=== PATIENT | female | born 1995 | race Hispanic/Latino ===

== ENCOUNTER 2020-03-14 16:58 | Emergency (ER) | payer BC, SELFPAY ==
--- NOTE | ~2020-03-14 | US_ITS ---
CORRECTED REPORT Spelling of last name corrected. Changed from Behena to Norman. 03/19/2020 sef EXAMINATION: US OB <=14 wk fetus w TV DATE: 03/14/2020 17:48 INDICATION: 2 days of vaginal bleeding and clots during first trimester . TECHNIQUE: Real-time pelvic ultrasound utilizing both a transvaginal and transabdominal probe was performed. The interpreting radiologist was not present for the study. COMPARISON: None. FINDINGS: The anteverted uterus measures 8.0 x 5.6 x 4.5 cm. The endometrial complex measures 5 mm with no intrauterine gestational sac identified, yolk sac or pole identified. 405 mm anechoic nabothian cyst at the cervix. The right ovary measures 2.3 x 1.8 x 1.7 cm. The left ovary is not visualized There is a small amount of anechoic free fluid in the cul-de-sac. IMPRESSION: 1. No intrauterine gestational sac. Correlate with clinical history for confirmation of a previous intrauterine which is confirmed would be consistent with spontaneous . In the absence of a previously confirmed the differential would also include ectopic or early . Reviewed, dictated and finalized at location . 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 No intrauterine gestational sac. Correlate with clinical history for confirm ation of a previous intrauterine which is confirmed would be consiste nt with spontaneous . In the absence of a previously confirmed pregnanc y the differential would also include ectopic or early .
[2020-03-14 17:01] VITALS: BP 121/63; PULSE 73; RESP 18; TEMP 36.5; O2SAT 100
--- NOTE | 2020-03-14 17:20 | ED.PREGNANCY ---
HPI - General Chief complaint: Vaginal Bleeding Stated complaint: miscarriage, bleeding Time Seen by Provider: 03/14/20 17:06 History of Present Illness HPI Narrative: 24 yo female at approximately 9 weeks gestation presents to the ED c/o miscarriage. She reports that she had heavy bleeding and cramping a few days ago. She beleives that she was having a miscarriage. She was called at work today by Dr. Carter's office and told to come to the ED for an ultrasound and some lab tests. The bleeding is now very light and she is having no pain Related Data Home Medications Medication Instructions Recorded Confirmed No Home Medications 03/14/20 03/14/20 Allergies Allergy/AdvReac Type Severity Reaction Status Date / Time No Known Allergies Allergy Verified 03/14/20 17:04 Review of Systems Constitutional: Constitutional: Denies fever(s) Cardiovascular: Cardiovascular: Denies chest pain Respiratory: Respiratory: Denies dyspnea Gastrointestinal: Gastrointestinal: Denies abdominal pain, Denies nausea and Denies vomiting Genitourinary: Genitourinary: Reports abnormal vaginal bleeding and Denies dysuria Neurologic: Denies dizziness and Denies weakness [facility] Past Medical History Medical History (Updated 03/14/20 @ 18:32 by Star Sparrow MD) Healthy adult Social History Social History (Updated 03/14/20 @ 17:24 by Star Sparrow MD) Smoking status: Never smoker Gender identity (if verbalized by the patient): Female Exam Const: General: healthy appearing, no acute distress and alert Orientation/consciousness: patient oriented x3 HENMT: Head: normal to inspection Neck: Neck: normal visual inspection Resp: Effort & Inspection: normal respiratory effort Auscultation: clear to auscultation bilaterally, no rales, no rhonchi and no wheezes Cardio: Jugular venous distension: no JVD Rate: regular rate Rhythm: regular rhythm Heart sounds: no murmurs GI: Inspection: non-distended GI Palp: Yes Soft to palpation and No Tenderness to palpation present (GI) Other: soft, nontender Skin: General skin exam: normal color Neuro: General: patient oriented x3 and moves all extremities Speech: normal speech Extrem: General: normal to inspection Psych: Appearance: well kempt Affect: normal affect Course Vital Signs Vital signs: Vital Signs Temperature 36.5 C 03/14/20 17:01 Pulse Rate 73 03/14/20 17:01 Respiratory Rate 18 03/14/20 17:01 Blood Pressure 121/63 03/14/20 17:01 Pulse Oximetry 100 03/14/20 17:01 Temperature 36.5 C 03/14/20 17:01 Pulse Rate 73 03/14/20 17:01 Respiratory Rate 18 03/14/20 17:01 Blood Pressure 121/63 03/14/20 17:01 Pulse Oximetry 100 03/14/20 17:01 MDM - OB/Uterine Contractions MDM Narrative Medical decision making narrative: Ultrasound shows an empty uterus. [facility] [place]. Rh +. Case discussed with Dr. Arguello. She can follow-up with them in clinic for repeat labs. Medical Records Attestation: I reviewed the patient's medical records. Lab Data Attestation: I reviewed the patient's lab results. Result diagrams: 03/14/20 17:23 Labs: Lab Results 03/14/20 03/14/20 03/14/20 Range/Units 17:23 17:23 17:25 WBC 8.2 (4.5-10.0) K/mm3 RBC 4.49 (4.2-5.4) M/mm3 Hgb 13.3 (12.0-15.0) g/dL Hct 39.6 (37.0-47.0) % MCV 88.2 (80-100) fl MCH 29.6 (26-34) pg MCHC 33.6 (32-36) g/dl RDW 12.1 (11.5-14.5) % Plt Count 277 (150-375) k/mm3 MPV 9.3 (7.4-10.4) fl Immature Gran % (Auto) 0.1 (0-0.5) % Neut % (Auto) 50.1 (45.5-73.1) % Lymph % (Auto) 43.0 (18.3-44.2) % Twiggs % (Auto) 5.6 (2.6-8.5) % Eos % (Auto) 1.0 (0-4.4) % Baso % (Auto) 0.2 (0.2-1.2) % Lymph # (Auto) 3.54 H (0.9-3.2) K/mm3 Twiggs # (Auto) 0.5 (0.1-0.6) K/mm3 Eos # (Auto) 0.1 (0-0.3) K/mm3 Baso # (Auto) 0.0 (0.0-0.1) K/mm3 Abs Immat Gran (auto) 0.01
[2020-03-14 17:40] LABS: Basophils Percent Auto 0.2 % (0.2-1.2); Eosinophils Absolute Auto 0.1 K/mm3 (0-0.3); Hematocrit 39.6 % (37.0-47.0); Hemoglobin 13.3 g/dL (12.0-15.0); Immature Granulocyte Absolute 0.01 K/mm3 (0.00-0.031); Immature Granulocyte Percent A 0.1 % (0-0.5); Lymphocytes Absolute Auto 3.54 K/mm3 (0.9-3.2); Mean Corpuscular HGB Conc 33.6 g/dl (32-36); Mean Corpuscular Hemoglobin 29.6 pg (26-34); Mean Corpuscular Volume 88.2 fl (80-100); Mean Platelet Volume 9.3 fl (7.4-10.4); Monocytes Absolute Auto 0.5 K/mm3 (0.1-0.6); Monocytes Percent Auto 5.6 % (2.6-8.5); Neutrophils Absolute Auto 4.1 K/mm3 (1.3-6.7); Neutrophils Percent Auto 50.1 % (45.5-73.1); Platelet Count Result 277 k/mm3 (150-375); Red Blood Count 4.49 M/mm3 (4.2-5.4); Red Cell Distribution Width 12.1 % (11.5-14.5); White Blood Count 8.2 K/mm3 (4.5-10.0)
[2020-03-14 18:07] LABS: Beta HCG Quantitative 317.64 mIU/ML
[2020-03-14 19:14] VITALS: BP 101/56; PULSE 68; RESP 16; TEMP 36.7; O2SAT 99
== END 2020-03-14 19:15 | disposition home or self-care (01) ==
PROVIDERS: Emergency Medicine; Emergency Provider Emergency Medicine; PCP Obstetrics & Gynecology
DX: O03.9 Complete or unspecified spontaneous abortion without complication (principal)
CPT/HCPCS: 36415; 76801; 76817; 84702; 85025; 85461; 99284

== ENCOUNTER 2020-07-15 11:21 | Outpatient (CLI) | payer BC, SELFPAY ==
--- NOTE | ~2020-07-15 | US_ITS ---
EXAMINATION: US OB <= 14 weeks fetus DATE: 07/15/2020 11:53 INDICATION: Threatened . TECHNIQUE: Real-time transabdominal and transvaginal obstetric ultrasound. FINDINGS: No prior studies for comparison. The uterus measures 8.6 x 6.5 x 8.2 cm. There is an intrauterine gestational sac, with pole des ntified. The crown rump length measures 1.87 cm, which correlates with a estimated gestational age o f 8 weeks 3 days. heart tones are identified measuring 161 bpm. There is a subchorionic hemor rhage measuring 1.2 x 0.7 x 1 cm. Right ovary is normal measuring 3.5 x 1.9 x 1.9 cm. Left ovary not visualized. IMPRESSION: 1. SL IUP with an EGA of 8 weeks, 3 days (EDC by current ultrasound of 02/21/2021). 2: Small subchorionic hemorrhage. Reviewed, dictated and finalized at location A. IMPRESSION: 1. SL IUP with an EGA of 8 weeks, 3 days (EDC by current ultrasound of 02/22/20). 2: Small subchorionic hemorrhage.
== END 2020-07-15 11:22 | disposition home or self-care (01) ==
PROVIDERS: Visit Provider Obstetrics & Gynecology
DX: O20.0 Threatened abortion (principal); Z3A.08 8 weeks gestation of pregnancy; O36.8911 Maternal care for other specified fetal problems, first trimester, fetus 1
CPT/HCPCS: 76801

== ENCOUNTER 2020-08-12 09:45 | Outpatient (CLI) | payer BC, SELFPAY ==
[2020-08-12 10:15] LABS: Basophils Percent Auto 0.2 % (0.2-1.2); Eosinophils Percent Auto 0.5 % (0-4.4); Hematocrit 38.8 % (37.0-47.0); Hemoglobin 13.9 g/dL (12.0-15.0); Immature Granulocyte Absolute 0.02 K/mm3 (0.00-0.031); Immature Granulocyte Percent A 0.2 % (0-0.5); Lymphocytes Percent Auto 30.3 % (18.3-44.2); Mean Corpuscular HGB Conc 35.8 g/dl (32-36); Mean Corpuscular Volume 86.4 fl (80-100); Mean Platelet Volume 9.3 fl (7.4-10.4); Monocytes Absolute Auto 0.5 K/mm3 (0.1-0.6); Monocytes Percent Auto 6.1 % (2.6-8.5); Neutrophils Absolute Auto 5.2 K/mm3 (1.3-6.7); Neutrophils Percent Auto 62.7 % (45.5-73.1); Platelet Count Result 219 k/mm3 (150-375); Red Blood Count 4.49 M/mm3 (4.2-5.4); Red Cell Distribution Width 12.7 % (11.5-14.5); White Blood Count 8.3 K/mm3 (4.5-10.0)
[2020-08-12 10:25] LABS: Add Urine Microscopic? YES; Amorphous Sediment Urine Few; Appearance Urine Turbid (Clear); Bacteria Urine Trace /hpf; Bilirubin Urine Negative (Negative); Blood Urine Negative (Negative); Color Urine Yellow (Yellow); Glucose Urine UA Negative (Negative); Ketones Urine Negative (Negative); Leukocyte Esterase Ur Trace LEU/UL (NEGATIVE); Nitrate Urine Negative (Negative); Protein Urine Negative (Negative); RBC Urine 0-2 /hpf (0-2); Specific Grav Ur 1.016 (1.001-1.035); Squamous Epithelial Cell Urine Many /hpf (Few); Urobilinogen Urine Negative mg/dL (<2.0); WBC Clumps Urine Present /HPF
[2020-08-12 11:02] LABS: Vitamin D 25 Hydroxy 29.9 ng/mL
[2020-08-12 11:09] LABS: Thyroid Stimulating Hormone 0.913 uIU/mL (0.465-4.680)
[2020-08-12 11:16] LABS: Hepatitis B Surface Antigen Negative (Negative)
[2020-08-12 11:19] LABS: HIV 1/2 Ab P24 Ag Result Negative (Negative)
[2020-08-12 11:32] LABS: Hepatitis C Virus Antibody Negative (Negative)
[2020-08-13 13:26] LABS: Rapid Plasma Reagin Non-Reactive (NonReactive)
[2020-08-15 20:46] LABS: Varicella IgG Antibody <135.00 Index (>=165.00)
[2020-08-18 21:33] LABS: Hematocrit 39.7 % (35.0-45.0); Hemoglobin 13.5 g/dL (11.7-15.5); MCH 31.3 pg (27.0-33.0); MCV 91.9 FL (80.0-100.0); RDW 13.9 % (11.0-15.0); Red Blood Cell Count 4.32 Mill/uL (3.80-5.10)
== END 2020-08-12 09:46 | disposition home or self-care (01) ==
PROVIDERS: Visit Provider Obstetrics & Gynecology
DX: Z34.92 Encounter for supervision of normal pregnancy, unspecified, second trimester (principal); Z3A.26 26 weeks gestation of pregnancy
CPT/HCPCS: 36415; 81001; 82306; 83021; 84443; 85025; 86592; 86703; 86762; 86787; 86803; 86850; 86900; 86901; 87086; 87088; 87340; G0432

== ENCOUNTER 2020-09-24 16:03 | Outpatient (CLI) | payer BC, SELFPAY ==
--- NOTE | ~2020-09-24 | US_ITS ---
EXAMINATION: US OB /maternal detail DATE: 09/24/2020 16:59 INDICATION: Encounter for supervision of normal . TECHNIQUE: Real-time ultrasound of the pelvis was performed. COMPARISON: Ultrasound 07/15/2020 FINDINGS: There is a single living fetus in breech presentation. The placenta is posterior. heart rate i s 138 beats per minute (bpm). The amniotic fluid volume is subjectively normal. The following biometric data were obtained: Biparietal diameter (BPD): 3.7 cm; head circumference (HC): 13.5 cm; abdominal circumference (AC): 11 .6 cm; femur length (FL): 2.5 cm. These measurements are concordant. Estimated weight is 194 g +/- 29 g, which correlates with <3rd percentile when 02/19/21 is used as estimated date of delivery. As single measurements, these parameters are each equal to the following estimated gestational ages: BPD: 17 weeks 2 days. HC: 17 weeks 0 days. AC: 17 weeks 2 days. FL: 17 weeks 4 days. estimated gestational age based solely on measurements from this exam is 17 weeks 2 days +/- 1 weeks 1 days. The cerebral ventricles, cerebellum, cisterna magna, nuchal fold, and visualized portions of the spin e are normal. The heart is not well visualized. The diaphragm, stomach, kidneys, and bladder are norm al. There are two umbilical arteries to yield a 3-vessel cord. The cord insertion is normal. IMPRESSION: 1. Single living fetus in breech presentation. 2. Small for gestational age. Estimated weight is 194 g +/- 29 g, which correlates with <3rd p ercentile when 02/19/21 is used as estimated date of delivery. Note that estimated date of delivery b ased on the ultrasound from 07/15/2020 would be 02/21/2021. 3. heart not well visualized. Otherwise normal anatomic survey. Reviewed, dictated and finalized at location A. IMPRESSION: 1. Single living fetus in breech presentation. 2. Small for gestational age. Estimated weight is 194 g +/- 29 g, which correlates with <3rd percentile when 02/19/21 is used as estimated date of deli very. Note that estimated date of delivery based on the ultrasound from 07/16/19 21 would be 02/21/2021. 3. heart not well visualized. Otherwise normal anatomic survey.
== END 2020-09-24 16:04 | disposition home or self-care (01) ==
LOC: ANHIMG 16:06
PROVIDERS: Visit Provider Obstetrics & Gynecology
DX: Z34.92 Encounter for supervision of normal pregnancy, unspecified, second trimester (principal); Z3A.17 17 weeks gestation of pregnancy
CPT/HCPCS: 76805

== ENCOUNTER 2020-12-11 09:16 | Outpatient (CLI) | payer BC, SELFPAY ==
[2020-12-11 11:08] LABS: Basophils Percent Auto 0.1 % (0.2-1.2); Eosinophils Absolute Auto 0.1 K/mm3 (0-0.3); Eosinophils Percent Auto 1.3 % (0-4.4); Hematocrit 35.1 % (37.0-47.0); Hemoglobin 11.5 g/dL (12.0-15.0); Immature Granulocyte Absolute 0.03 K/mm3 (0.00-0.031); Immature Granulocyte Percent A 0.4 % (0-0.5); Lymphocytes Absolute Auto 1.97 K/mm3 (0.9-3.2); Mean Corpuscular HGB Conc 32.8 g/dl (32-36); Mean Corpuscular Hemoglobin 29.6 pg (26-34); Mean Corpuscular Volume 90.5 fl (80-100); Mean Platelet Volume 9.5 fl (7.4-10.4); Monocytes Absolute Auto 0.5 K/mm3 (0.1-0.6); Monocytes Percent Auto 5.7 % (2.6-8.5); Neutrophils Percent Auto 69.5 % (45.5-73.1); Platelet Count Result 250 k/mm3 (150-375); Red Blood Count 3.88 M/mm3 (4.2-5.4); Red Cell Distribution Width 12.4 % (11.5-14.5); White Blood Count 8.6 K/mm3 (4.5-10.0)
[2020-12-11 11:18] LABS: Glucose 1 Hour PP 50gm Dose 134 mg/dL
[2020-12-11 11:59] LABS: HIV 1/2 Ab P24 Ag Result Negative (Negative)
[2020-12-12 09:27] LABS: Rapid Plasma Reagin Non-Reactive (NonReactive)
== END 2020-12-11 09:17 | disposition home or self-care (01) ==
LOC: ANHLAB 09:18
PROVIDERS: Visit Provider Obstetrics & Gynecology
DX: Z34.90 Encounter for supervision of normal pregnancy, unspecified, unspecified trimester (principal)
CPT/HCPCS: 36415; 82947; 85025; 86592; 86703; G0432

== ENCOUNTER 2020-12-17 06:42 | Outpatient (CLI) | payer BC, SELFPAY ==
[2020-12-17 07:44] LABS: Glucose Fasting Gestational 88 mg/dL (>/=95)
[2020-12-17 09:36] LABS: Glucose 1 Hour Gest 129 mg/dL (>/=180)
[2020-12-17 10:32] LABS: Glucose 2 Hour Gest 137 mg/dL (>/= 155)
[2020-12-17 11:13] LABS: Glucose 3 Hour Gest 106 mg/dL (>/=140)
== END 2020-12-17 06:43 | disposition home or self-care (01) ==
LOC: ANHLAB 06:46
PROVIDERS: Visit Provider Obstetrics & Gynecology
DX: R73.09 Other abnormal glucose (principal)
CPT/HCPCS: 36415; 82951; 82952

== ENCOUNTER 2021-01-07 16:14 | Outpatient (RCR) | payer BC, SELFPAY ==
[2021-01-06] MEDS: BETAMETHASONE SOD PHOS/ACETATE 30 MG/5 ML VIAL 12 MG IM (16:26)
[2021-01-07] MEDS: BETAMETHASONE SOD PHOS/ACETATE 30 MG/5 ML VIAL 12 MG IM (16:21)
== END 2021-02-24 14:53 | disposition home or self-care (01) ==
LOC: ANHOBOP 16:14
PROVIDERS: Visit Provider Obstetrics & Gynecology
DX: O36.8990 Maternal care for other specified fetal problems, unspecified trimester, not applicable or unspecified (principal); Z3A.00 Weeks of gestation of pregnancy not specified
CPT/HCPCS: 96372; J0702

== ENCOUNTER 2021-01-30 17:12 | Inpatient (IN) | payer BC, SELFPAY ==
[2021-01-30] VITALS (7 sets, daily range): BP systolic 76–108; BP diastolic 39–81; PULSE 74–124; TEMP 36.6
--- NOTE | 2021-01-30 17:40 | LDADM ---
This patient, Carolin Norman, was admitted to Labor/Delivery/Recovery 104 on 01/30/21 at 17:12. Plans for labor, pain management and were discussed with patient. Patient/family oriented to hospital policies and general routines including ID bracelet, bed and alarms, visiting hours, pain management, procedures, bathroom and other care routines, personal items, smoking policy, room service/diet and guest tray routines, infant security routines, and visiting hours. Patient/Family are encouraged to report perceived risks to care and to ask questions if they do not understand what they are told or what they should do. See OBIX for further documentation.
[2021-01-30 17:48] LABS: Basophils Percent Auto 0.1 % (0.2-1.2); Eosinophils Percent Auto 0.3 % (0-4.4); Hematocrit 34.9 % (37.0-47.0); Hemoglobin 11.6 g/dL (12.0-15.0); Immature Granulocyte Absolute 0.03 K/mm3 (0.00-0.031); Immature Granulocyte Percent A 0.3 % (0-0.5); Lymphocytes Absolute Auto 2.27 K/mm3 (0.9-3.2); Lymphocytes Percent Auto 25.2 % (18.3-44.2); Mean Corpuscular HGB Conc 33.2 g/dl (32-36); Mean Corpuscular Hemoglobin 28.4 pg (26-34); Mean Corpuscular Volume 85.3 fl (80-100); Mean Platelet Volume 9.1 fl (7.4-10.4); Monocytes Absolute Auto 0.6 K/mm3 (0.1-0.6); Monocytes Percent Auto 6.4 % (2.6-8.5); Neutrophils Absolute Auto 6.1 K/mm3 (1.3-6.7); Neutrophils Percent Auto 67.7 % (45.5-73.1); Platelet Count Result 267 k/mm3 (150-375); Red Blood Count 4.09 M/mm3 (4.2-5.4); Red Cell Distribution Width 13.6 % (11.5-14.5)
[2021-01-30] MEDS: DINOPROSTONE 10 MG VAG INSERT VAGINAL (17:59)
[2021-01-31] VITALS (20 sets, daily range): BP systolic 74–122; BP diastolic 31–79; PULSE 61–93; RESP 16–20; TEMP 36.8–37.1; O2SAT 100
[2021-01-31] MEDS: LACTATED RINGERS 1,000 ML 125 ML IV CONT (06:54)
--- NOTE | 2021-01-31 07:52 | PM.OBPRVD ---
OB - Delivery Note Procedure Delivery date: 01/31/21 Procedure: events: Labor Induction Intrapartal events: None Induction method: per misoprostol protocol Delivery monitor: external FHT and external uterine Route of delivery: Specimen: Yes Quantitative Blood Loss (ml): 178 Anesthesia type: Local Disposition: floor Complications: none [place] Baby Date of : 01/31/21 Time of : 08:02 Weeks of gestation at delivery: 37 Infant gender: Female Weight (pounds): 4 Weight (ounces): 14 presentation: vertex position: Right Occiput Anterior Placenta delivery description: Spontaneous cord vessel description: 3 Vessels, Nuchal Cord, Tight and Clamped/Cut score one minute: 9 score five minutes: 9
[2021-01-31] MEDS: OXYTOCIN 30 UNITS/NS 500 ML 30 UNITS/500 ML BAG 6 UNITS IV CONT (08:08)
[2021-01-31] MEDS: OXYTOCIN 30 UNITS/NS 500 ML 30 UNITS/500 ML BAG 125 UNITS IV CONT (08:38)
--- NOTE | 2021-01-31 09:25 | PC.NURSE ---
Consult with pt., in L&D mother reports she has attempted infant to breast and unable to obtain a deep latch. is able to freely thrust tongue past gum ridge and flange both lips. Discussed establishing in the late may be more difficult due to their immaturity, infant may be less alert, have less stamina, and have greater difficulty with latch, suck, and swallow. Infant?s feeding may impact mother?s milk supply, pumping may need to be initiated /continued until milk supply is well established and infant is able to effective without supplementation. Reviewed infant feeding cues, frequencies, duration of feedings, feeding elimination flow sheet, and signs of adequate intake. Demonstrated stimulation techniques to wake infant for feeding. Assisted with to breast. Reviewed positioning/alignment in cross cradle, holding breast in ?U? hold and guided asymmetrical latch on. Reviewed rational for each. Infant is making eager attempts. Mother has large nipples with a crease in the center of nipple that appear to be inverted, entire nipple draws out with stimulation. is unable to draw entire nipple in and will draw in half of nipple above crease. Several attempts made without a successful latch. Mother would like to be supplemented for this feeding. Discussed options of attempting next latch using a nipple shield.
[2021-01-31 12:01] LABS: Rapid Plasma Reagin Non-Reactive (NonReactive)
--- NOTE | 2021-01-31 12:30 | PC.NURSE ---
Mother called out for assist with feeding. Nipple care reviewed of lanolin after feedings, warm compresses as needed. Reviewed infant feeding cues, frequencies, duration of feedings, feeding elimination flow sheet, and signs of adequate intake. Demonstrated stimulation techniques to wake for feeding. Assisted with to breast. Reviewed positioning/alignment in cross cradle, holding breast in ?U? hold and guided asymmetrical latch on. Reviewed rational for each. was unable to latch correctly and draw entire nipple in deeply. Discussed nipple shield use and how shield may assist with latch. Mother is willing to attempt using shield. Initiated nipple shield due to inverted nipple, unable to latch and unable to maintain latch. Reviewed nipple shield precautions and possible complications. Instructions given on application and cleaning of shield. Patient able to return demonstration on proper application of shield. Discussed the need to initiate pumping if infant continues to nurse with the shield. Patient verbalizes understanding. With shield in place, able to latch correctly within a few attempts. Infant nursed eagerly with steady draws and occasional swallowing noted for bursts followed with long pausing. Reviewed signs of a correct latch, effective nursing and suck swallow ratio. was able to maintain latch without discomfort to mother. Suggested mother stimulate while feeding to increase stimulate, increase intake and to assist with maintaining deep latch. Demonstrated how to adjust latch more deeply while feeding if needed. Discussed the need to initiate pumping due to ineffective nursing. Instructions given on breast pump care and usage, pumping schedule, nipple care, and collection and storage of breast milk. Encouraged [id number], breast massage and manual expression to stimulate supply. Pumping log provided and reviewed. Assessed patient for correct flange size, placement and draw. Patient verbalizes and demonstrates understanding of instructions. Discussed the difference of effective vs ineffective feeding. Reviewed is latching with good burst of suckling, she is not feeding consistently with adequate milk transfer at this time and continues to need to be supplement after . Feeding options discussed, Feeding Plan is for mother to put infant to breast each feeding for up to 15 minutes, then pace feed supplement 10-15mls and pump for 10-15 minutes. Parents are comfortable with supplementation and pumping. If infant begins to nurse effectively with long draws and frequent swallowing noted, infant may decrease supplementation and discontinue pumping. Suggested mother have LC insurance coordinator observe feeding before discontinuing supplementation. Discussed increasing supplementation as requires to satisfactions. Reviewed paced feeding and suggested to stop when is satisfied, as long as infant is having required output. With increased supplementation may not want to feed for 4 hours. Mother will continue to pump on feeding schedule and will increase session to 20 minutes if pumping every 4 hours. Instructed mother to call out for RN assistance if she is unable to latch infant for feeding or she has discomfort with nursing. Instructed feeding should be initiated three hours from start of last feeding or if feeding cues are noted before. Mother voiced understanding
[2021-02-01 03:10] VITALS: BP 97/49; PULSE 80; RESP 16; TEMP 36.4
[2021-02-01 04:45] LABS: Hematocrit 32.7 % (37.0-47.0); Hemoglobin 10.7 g/dL (12.0-15.0)
[2021-02-01 08:00] VITALS: BP 102/62; PULSE 85; RESP 18; TEMP 37.1; O2SAT 99
[2021-02-01] MEDS: MULTIVIT/MIN/PREN/FOL AC/IRON TABLET 1 TAB PO (09:25)
--- NOTE | 2021-02-01 11:58 | P.PNOB_ITS ---
OB - PN: Subj Subjective Date/time seen: 02/01/21 11:58 Patient comments: pain well controlled, tolerating diet and other (Decreasing lochia.) baby status: doing well and nursing well OB - PN: Obj Data Labs CBC & Chem 7: 02/01/21 03:12 Labs: Laboratory Results - last 24 hr 01/30/21 02/01/21 17:37 03:12 Hgb 10.7 L Hct 32.7 L RPR Non-reactive OB - PN A/P Plan day: 1 Plan: routine care Comments: Patient doing well. Continue routine care. Time Spent With Patient Time: Total time spent is greater than 50% in coordination of care (as documented) at patient's floor/unit and/or counseling patient: Exam Const: General: comfortable Resp: Effort & Inspection: normal respiratory effort Psych: Affect: normal affect Other: Abd: fundus firm below umbilicus, no ntender Perineum: healing Ext: nontender
--- NOTE | 2021-02-01 12:01 | PM.OBDSVD ---
DS: Admitting Diagnosis Discharge Date 02/03/2020 Admitting Diagnosis Intrauterine growth restriction DS: Discharge Diagnosis Discharge Diagnosis (1) Delivery normal: Code(s): O80 - Encounter for full-term uncomplicated delivery Status: Acute OB - DS: Summary Hospital Course Hospital Course: Patient admitted for medical induction of labor for intrauterine growth restriction. She had an uncomplicated vaginal delivery. she did well. She was ambulating well, tolerating regular diet and had adequate pain control. OB Procedures : Ultrasound OB Procedures Intrapartum: Spontaneous Vag Delivery OB Procedures: : None Peripartum Data Infant Delivery Method: Natural Vaginal Laceration Description: Perineal - 1st Degree complications: none Status at Discharge Functional status at discharge: independent ambulation Time Spent with Patient Time attestation: Total time spent providing and/or coordinating discharge services: Exam Const: General: cooperative Orientation/consciousness: oriented to person, oriented to place and oriented to time HENMT: General nose exam: Normal external nose present Eyes: General: appearance normal, both eyes and all related structures Resp: Effort & Inspection: normal respiratory effort GI: Inspection: normal to inspection : External Female Exam: normal external appearance Skin: General skin exam: normal color Neuro: General: oriented to person, oriented to place and oriented to time Extrem: General: normal to inspection and no calf tenderness Psych: Appearance: grossly normal Mental Status: mental status grossly normal DS: Data Data Completed and Pending Pending studies at discharge: Pending at discharge 01/31/21 12:28 Surgical [PTH] Routine Labs on day of discharge: Labs from last 24 hours 02/01/21 01/30/21 03:12 17:37 Hgb 10.7 L Hct 32.7 L RPR Non-reactive Discharge Plan Discharge Attending physician on discharge: Bibi Limon Consulting providers: Titus Camacho Discharging Clinician: Titus Camacho Anticipated Discharge Date/Time: 02/02/21 10:55 Patient Disposition: Home, Self-Care Activity: may shower and pelvic rest Diet: regular Discharge Instructions: Pelvic rest for 4-6 weeks. May take over the counter Ibuprofen or Tylenol for pain. Call if saturating more than a pad an hour, leg redness, pain and swelling, temperature>100.4. No strenuous activity. Take vitamins once a day. Education: Mom and Baby Guide Given to: Mother Follow-Up: Call your delivering provider's office for an appointment to be seen in: 4 Weeks Mom and baby should come to the [facility] for the follow-up appointment. Appointment Date/Time: February 06, 2021 at 10:00 am What to expect at your follow-up visit: Physical Assessment Call [phone] if you are unable to keep your appointment time. BREAST CARE: * Wear a snug supportive bra. * For engorgement discomfort: Breast Feeding: * Apply warm moist washcloths * Express milk as needed to relieve engorgement * Wear loose clothing * For sore nipples: * Identify correct latch-on * Apply warm moist washcloths before and after nursing * Air dry nipples after nursing * May apply Lansinoh cream to nipples PERINEAL CARE: * Until bleeding stops, use your hasmukh bottle after urinating * Change your pad frequently throughout the day * You may take sitz baths several times a day (fill your bathtub with warm water and soak for 20 minutes.) Do NOT bathe in the water * No tub baths until seen by your physician - You may shower ACTIVITY: * Rest as much as possible. * Do not exercise or lift anything heavier than your baby (such as laundry or other children.) * Avoid stairs or driving as much as possible. * Do not put anything into the vagina. No douching,
[2021-02-01 20:17] VITALS: BP 98/54; PULSE 84; RESP 16; TEMP 37.3; O2SAT 99
[2021-02-02 09:02] VITALS: BP 100/63; PULSE 89; RESP 16; TEMP 36.7; O2SAT 100
[2021-02-02] MEDS: MULTIVIT/MIN/PREN/FOL AC/IRON TABLET 1 TAB PO (09:56)
[2021-02-02] MEDS: MEASLES,MUMPS,RUBELLA VACCINE 0.5 ML VIAL SUB-Q (09:56)
--- NOTE | 2021-02-02 10:54 | PM.OBPNVD ---
OB - PN: Subj Subjective Date/time seen: 02/02/21 10:54 Patient comments: pain well controlled, tolerating diet and other (Decreasing lochia.) baby status: doing well and nursing well OB - PN: Obj Data Labs CBC & Chem 7: 02/01/21 03:12 OB - PN A/P Plan day: 1 Plan: routine care Comments: Patient doing well. Will discharge home. Discharge precautions discussed. Time Spent With Patient Time: Total time spent is greater than 50% in coordination of care (as documented) at patient's floor/unit and/or counseling patient: Exam Psych: Affect: normal affect Other: Abd: fundus firm below umbilicus, nontender Perineum: healing Ext: nontender
[2021-02-06 10:22] VITALS: BP 95/59; PULSE 78; RESP 20; TEMP 37.1; O2SAT 100
== END 2021-02-02 13:41 | disposition home or self-care (01) | DRG 807 ==
LOC: ANHOB2 02-02 10:56 → ANHLDR 02-03 16:48 → ANHOB2 02-03 16:48
PROVIDERS: Admitting Provider Obstetrics & Gynecology; Visit Provider Obstetrics & Gynecology
DX: O69.81X0 Labor and delivery complicated by cord around neck, without compression, not applicable or unspecified (principal); Z37.0 Single live birth; O36.5930 Maternal care for other known or suspected poor fetal growth, third trimester, not applicable or unspecified; O76 Abnormality in fetal heart rate and rhythm complicating labor and delivery; O70.1 Second degree perineal laceration during delivery; Z3A.37 37 weeks gestation of pregnancy
CPT/HCPCS: 36415; 85014; 85018; 85025; 86592; 86850; 86900; 86901; 88307; 90710; A9270; J2270; J2590; J2795; J7120